=== PATIENT | female | born 1995 | race Caucasian/White ===

== ENCOUNTER 2018-05-02 08:58 | Emergency (ER) | payer OTHER ==
[~2018-05-02] VITALS: Ht 165.1 cm; Wt 83.5 kg
[~2018-05-02 08:58] MED LIST: ACETAMINOPHEN-1 EAC1 PO; CYCLOBENZAPRINE5 MG PO; HYDROCODONE-AP1 EAC6 PO; IBUPROFEN 600600 M1 PO; IBUPROFEN 800800 M1 PO; KEFLEX500 MG PO; MACROBID 100 M100 M1 PO; NAPROSYN500 MG PO; PYRIDIUM200 MG PO; TRAZODONE HCL100 MG PO; VISTARIL 25 MG25 M1 PO; ZOFRAN ODT4 MG PO; ZOLOFT50 MG PO
[2018-05-02 09:23] LABS: ABSOLUTE EOSINOPHILS 0.1 thou/uL (0.0-0.7); ABSOLUTE LYMPHOCYTES 2.2 thou/uL (0.8-5.3); ABSOLUTE MONOCYTES 0.9 thou/uL (0.0-1.2); ABSOLUTE NEUTROPHILS 6.4 thou/uL (1.6-8.1); BASOPHILS 0.4 %; EOSINOPHILS 1.3 %; HEMATOCRIT 39.6 % (37.0-47.0); HEMOGLOBIN 13.2 gm/dL (12.0-15.0); LYMPHOCYTES 23.1 %; MCH 28.7 pg (26.0-34.0); MCHC 33.3 g/dL (28.0-37.0); MCV 86.3 fL (80.0-100.0); MONOCYTES 9.2 %; NUCLEATED RBCS 0 /100WBC; PLATELET COUNT* 327 thou/uL (150-400); RBC 4.59 mil/uL (4.20-5.00); RDW-CV 14.6 % (10.5-14.5); WBC 9.7 thou/uL (4.0-11.0)
[2018-05-02 09:36] LABS: APTT 31.4 Seconds (25.0-31.3); INR 1.1; PROTIME 10.6 Seconds (9.20-11.50)
[2018-05-02 09:45] LABS: ANION GAP 9 mmol/L (7-16); BUN 9 mg/dL (7-18); CALCIUM 8.7 mg/dL (8.5-10.1); CHLORIDE 102 mmol/L (98-107); CO2 24 mmol/L (21-32); CREATININE 0.8 mg/dL (0.6-1.3); GLUCOSE 100 mg/dL (70-99); POTASSIUM 3.4 mmol/L (3.5-5.1); SODIUM 135 mmol/L (136-145)
[2018-05-02 10:03] LABS: ALBUMIN 3.9 g/dL (3.4-5.0); ALKALINE PHOSPHATASE 74 U/L (46-116); CK-MB MASS 1.5 ng/mL (<0.5-3.6); LIPASE 98 U/L (73-393); MAGNESIUM 1.8 mg/dL (1.8-2.4); NT-PRO BRAIN NAT PEPTIDE 11 pg/mL (<300); SGOT 17 U/L (15-37); SGPT 20 U/L (30-65); TOTAL BILIRUBIN 0.3 mg/dL (<0.1-1.0); TOTAL PROTEIN 7.6 g/dL (6.4-8.2); TROPONIN-I LEVEL <0.06 ng/mL (<0.06)
[2018-05-02 10:08] VITALS: BP 121/82
--- NOTE | 2018-05-02 15:56 | EKG ---
[place] [address] ELECTROCARDIOGRAM REPORT Name: BRADEN PLEITEZFANAlexandria Rockwell Room: [facility]#: [id number] Admission: 05/02/18 Attend Phys: Discharge: 05/02/18 Date of : [birth year] Report #: [id number] THIS REPORT FOR: //name// [facility] ED Test Date: 2018-05-02 Test Time: 09:02:42 Pat Name: EVELYNE PLEITEZ Department: Room: Gender: F Administration Professional: [facility] : 1995 Requested By: Son Celeste Order Number: [id number] MD: Celestine Matthews Measurements Intervals [place] Rate: 86 P: 23 [place]: 157 QRS: 22 QRSD: 72 T: 6 QT: 364 QTc: 436 Interpretive Statements Sinus rhythm Probable left atrial enlargement Compared to ECG 01/13/2015 18:45:12 Sinus arrhythmia no longer present Electronically Signed On 05-02-2018 15:56:30 CDT by Celestine Matthews [email or web address] <ELECTRONICALLY SIGNED> By: Celestine Matthews MD, [facility] 05/02/18 [id number] Celestine Matthews MD, [facility] /EPI
== END 2018-05-02 10:09 | disposition home or self-care (01) ==
LOC: M.ERS 08:58
PROVIDERS: Family Medicine
DX: R00.2 Palpitations (principal)

== ENCOUNTER → 2021-09-22 | Outpatient (CLI) | payer BC | LOC: M.ULTRA 08:00 | PROVIDERS: ATTEND Nurse Practitioner | DX: E04.2 Nontoxic multinodular goiter (principal); R79.89 Other specified abnormal findings of blood chemistry ==

== ENCOUNTER → 2021-10-04 | Outpatient (CLI) | payer BC, OTHER, MEDICAID | LOC: M.NUC 09-26 09:06 | PROVIDERS: ATTEND Nurse Practitioner | DX: R79.89 Other specified abnormal findings of blood chemistry (principal) ==